=== PATIENT | male | born 1935 | race African-American/Black ===

== ENCOUNTER 2016-11-22 18:01 | Inpatient (IN) | payer OTHER ==
[~2016-11-22] VITALS: Ht 175.3 cm; Wt 61.2 kg
--- NOTE | ~2016-11-22 | O ---
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 OPERATIVE PROCEDURE: Excisional debridement of 10 x 12 cm necrotic subcutaneous skin and fascia with a mass comprising 4 x 8 x 2 cm of necrotic tissue, stage 4 decubitus ulcer. SURGEON: Derek Diaz M.D. INDICATIONS: This 81-year-old male who is confined to bed with severe parkinsonian has been developing over recent months a left ischial tuberosity stage 4 decubitus ulcer of approximately 4 cm diameter, but with marked necrosis of the underlying subcutaneous tissue and muscle fascia, now requires excisional debridement. OPERATIVE PROCEDURE: The durable power of copy room technician is the patient's . Had discussion of the planned procedure and she gave informed consent to proceed. He was brought to the operating room suite and had satisfactory induction of general anesthesia. He was placed into a right lateral decubitus position. The paint with Betadine around the left ischial tuberosity and decubitus ulcer was performed; appropriate draping was then placed. Initially the round 4 cm opening was opened in an inferior aspect to fully open the tissue. A small amount of necrotic skin was excised, a large amount of underlying subcutaneous necrotic tissue and muscle and fascia was then excised down to clean bleeding points. This mass for excisional debridement of necrotic tissue was approximately 4 x 8 x 2 cm in greatest dimensions. The opening of the tissue after the skin and subcutaneous tissue were opened was now approximately 8 x [address] [address] OPERATIVE REPORT Name: INES SANCHEZ Room #: 203-P [facility] IN .R.#: [id number] Admission: 11/22/16 Attend Phys: Nico Singh MD Discharge: Date of : 35 Report #: [id number] cm in greatest dimensions. All necrotic tissue was excised. Hemostasis was then achieved with electrocautery Surgicel sheets were placed adjacent to the underlying tissue. The remainder of the wound was then packed tightly with iodoform Naropin soaked gauze. After the wound was packed tightly an ABD was placed and the estimated blood loss for the entire procedure was less than 25 mL. The patient tolerated the procedure well and he returned to the recovery room in stable and satisfactory condition. <ELECTRONICALLY SIGNED> By: Derek Diaz MD, FACS 12/04/16 0858 1639 1935 Derek Diaz MD, FACS /nt
--- NOTE | ~2016-11-22 | HC ---
[facility] [place] [address] [address] [place] [address] CONSULTATION Name: INES SANCHEZ Room #: 203-P [facility] IN M.R.#: [id number] Admission: 11/22/16 Attend Phys: Nico Singh MD Discharge: Date of : 35 Report #: [id number] THIS REPORT FOR: //name// CC: Nico Mccray DATE OF SERVICE: 11/24/2016 INDICATION: Preoperative evaluation. HISTORY OF PRESENT ILLNESS: This is an 81-year-old gentleman who was transferred from [facility] for fevers. He has had multiple admissions for ulcers and presents for concern regarding exacerbation of his decubitus ulcers. The patient has a history of severe dementia and Parkinson's, nonreversible. Part of the history is obtained from his medical records and his . There is no prior history of CAD, NV, diabetes mellitus or hypertension. PAST MEDICAL HISTORY: Parkinson's, Alzheimer's, nonreversible; history of dysphagia, status post PEG; left BKA. ALLERGIES: None. MEDICATIONS: Please see the MAR for full listing. SOCIAL HISTORY: Negative for tobacco use. FAMILY HISTORY: Unobtainable. REVIEW OF SYSTEMS: Unobtainable. PHYSICAL EXAMINATION: VITAL SIGNS: Blood pressure is 110/70, heart rate is 80 beats per minute. GENERAL APPEARANCE: In no distress. HEAD AND EYES: Atraumatic. PERRLA. NECK: No JVD. LUNGS: Clear to auscultation bilaterally. CARDIAC: S1, S2 positive, no gallops, no rubs. ABDOMEN: Soft, nontender. EXTREMITIES: Prior left AKA. ECG reveals sinus rhythm. LABORATORY VALUES: Sodium is 138, creatinine 0.6. White count is 11.4, hemoglobin is 10.3. ASSESSMENT: In summary, this is an 81-year-old gentleman who has severe [facility] [address] [place] [address] CONSULTATION Name: INES SANCHEZ Room #: 203-P ADM IN [facility]#: [id number] Admission: 11/22/16 Attend Phys: Nico Singh MD Discharge: Date of : 35 Report #: [id number] Alzheimer's and Parkinson's presenting with progression of decubitus ulcers requiring wound debridement by General Surgery. He has no prior history of CAD, diabetes mellitus or hypertension. We are unable to assess his functional capacity. The ECG reveals sinus rhythm with no acute ST segment changes. It is difficult to risk stratify the patient. However, the procedure itself is a low to moderate risk procedure. There appears to be no apparent restrictions prohibiting him from proceeding with debridement given its current state. Thank you for allowing me to participate in the care of your patient. <ELECTRONICALLY SIGNED> By: Og Young MD 11/25/16 0804 1121 2233 Og Young MD /nt
--- NOTE | ~2016-11-22 | S ---
[facility] [place] [address] [address] [place] [address] SURGICAL PATH RPT PROCEDURE Name: HUMZA SANCHEZ Room #: 203-P ADM IN M.R.#: [id number] Admission: 11/22/16 Date of : 35 Discharge: Report #: [id number] Path Case #: [id number] PATHOLOGY REPORT COLLECTION DATE: 11/24/2016 RECEIVED DATE: 11/26/2016 SUBMITTING PHYS: Dr. Derek Diaz OTHER PHYS: Dr. Ramón Singh SPECIMEN(S) RECEIVED: A.Necrotic bedridement tissue left ischial tuberosity * * * * * * * * * * * * FINAL DIAGNOSIS: Necrotic debridement tissue left ischial tuberosity: - Marked acute inflammation associated with fibrinoid necrosis, consistent with debridement tissue. PATHOLOGIST: Esthela Garcia M.D. REPORT ELECTRONICALLY SIGNED BY: Esthela Garcia M.D. DATE/TIME: 11/27/2016 16:56 * * * * * * * * * * * * GROSS PATHOLOGY: The specimen is received in formalin labeled "Humza Sanchez, necrotic debridement tissue left ischial tuberosity". Received is a moderate amount of dusky ocampo-ortega necrotic-appearing soft tissue measuring 7.2 x 3.5 x 1.5 cm in aggregate dimensions. The specimen is submitted representatively in cassette A1. (CAA; 11/26/2016) CLINICAL HISTORY: Decubitus ulcer stage IV INITIAL CPT CODE(S): A; 47371 Professional services performed by [facility] at [facility] [address] [place] [address] Technical services performed by [facility] at [address] [place] [address]. [facility] [address] [place] [address] SURGICAL PATH RPT PROCEDURE Name: HUMZA SANCHEZ Room #: 203-P ADM IN M.R.#: [id number] Admission: 11/22/16 Date of : 35 Discharge: Report #: [id number] Path Case #: [id number] [address] PHONE: [phone] DIRECTOR: Juan Manuel Iniguez M.D. * * * END OF REPORT * * *
--- NOTE | ~2016-11-22 | HC ---
[facility] [place] [address] [place] [address] CONSULTATION Name: INES SANCHEZ Room #: 203-P ADM IN M.R.#: [id number] Admission: 11/22/16 Attend Phys: Nico Singh MD Discharge: Date of : 35 Report #: [id number] THIS REPORT FOR: //name// CC: Nico Mccray REASON FOR CONSULTATION: I was asked to evaluate concerning left ischial tuberosity osteomyelitis. HISTORY OF PRESENT ILLNESS: The patient is an 81-year-old with underlying history of Parkinson's disease and Lewy body dementia who has had a chronic ulcer to his left ischium. He had a heel wound that would not resolve and underwent an AKA. He continues to have issues; however, with a left ischial wound. I do not have any recent cultures. Prior to his admission, he had some fever up to 101 degrees. The patient does feed orally plus he has had a PEG tube placed. He was nonverbal. He has been in a residential for the last year or so. On 11/24/2016, he was taken to the operating room for surgical debridement. This was performed by Dr. Derek Diaz. There are no early postoperative complications. He has been placed on vancomycin and Levaquin. Previous cultures earlier in the year had grown MRSA from his heel wound in addition to morganella and enterococcus. Postoperatively, he has been afebrile, appetite has improved some, no diarrhea, has an indwelling Van catheter, and has peripheral IV in place. He is on room air with an oxygen saturation 100%. REVIEW OF SYSTEMS: Otherwise, noncontributory. ALLERGIES: None known. MEDICATIONS: As noted on his MAR including vancomycin and Levaquin. PAST MEDICAL HISTORY, FAMILY HISTORY, AND SOCIAL HISTORY: Unchanged from his previous consultation and that of his history and physical. PHYSICAL EXAMINATION: VITAL SIGNS: He is afebrile, hemodynamically stable. GENERAL: He was sitting up in bed, being fed by his daughter pureed food. HEENT: Unremarkable. NECK: Supple. There was increased muscle tone throughout. LUNGS: Clear. HEART: Regular without murmur. ABDOMEN: Soft, PEG site unremarkable. EXTREMITIES: His left ischial wound was relatively clean, it was down to the bone. No surrounding cellulitis. No purulent drainage. He is incontinent of stool. His left AKA was unremarkable. Right foot had a lateral malleolus shallow ulcer. LABORATORY STUDIES: Sodium 139, potassium 3.7, bicarbonate 24, creatinine 0.5. [address] [address] CONSULTATION Name: INES SNACHEZ Room #: [facility]- ADM IN ..#: [id number] Admission: 11/22/16 Attend Phys: Nico Singh MD Discharge: Date of : 35 Report #: [id number] Hemoglobin 9, white count 5, platelet count 392,000. His white count is down from his admission white count of 18,000. Vancomycin trough of 13. MRSA screen was negative, although he had a positive culture from his foot 5 months ago. Urinalysis, few wbc's, many bacteria from a Van catheter specimen. Blood cultures are negative to date. MRI scan of the pelvis showed a large left posterior decubitus ulcer within the left inferior buttock. No evidence of osteomyelitis seen on that study. IMPRESSION: An 81-year-old with chronic ulcer to his left ischium, now postoperative day #2. Do not have any microbiology reports . Although, the MRI scan showed no evidence of bony destruction. The wound does track down toward the ischial tuberosity. I would recommend broad antibiotic coverage for the next week or so until we get a good base of healing tissue above the ischium. I will vancomycin with Gram negative coverage. We will follow his white count as well as sedimentation rate. PLAN: To transfer to LTAC for further antibiotic and wound care. <ELECTRONICALLY SIGNED> By: Neel Galaviz MD 11/27/16 0747 1751 0113 Neel Galaviz MD /nt
--- NOTE | ~2016-11-22 | HC ---
[facility] [address] [address] [place] [address] CONSULTATION Name: INES SANCHEZ Room #: 540-P [facility] IN M.R.#: [id number] Admission: 11/22/16 Attend Phys: Nico Singh MD Discharge: 12/05/16 Date of : 35 Report #: [id number] THIS REPORT FOR: //name// CC: Ncio Singh [facility] DATE OF SERVICE: 11/22/2016 Dr. Montalvo, physician bus assistant in collaboration with Dr. Asad Washington dictating a consultation note on the patient. ADMITTING PHYSICIAN: Nico Singh M.D. REASON FOR CONSULTATION: Evaluation and recommendations regarding wound care. CHIEF COMPLAINT: Fever, chronic left ischial pressure ulcer. HISTORY OF PRESENT ILLNESS: The patient is an 81-year-old -Turkish male, well known to wound care from previous hospitalizations that was brought in to the Emergency Department by EMS from [facility]. The patient's last admission was on 08/14/2016. He has recently undergone a left BKA. He does also have a PEG tube in place for dysphagia. The patient has a history of Lewy Body dementia and is nonverbal. On that previous admission, he did have a left ischial tuberosity wound, staged at a 2. Currently, the wound is significantly deteriorated with very malodorous, copious, brown purulent drainage expressed . The bone can be felt with a thin layer of tissue over it. A CT scan of the abdomen upon this admission did not show overt osteomyelitis; however, MRI is warranted. He does have increased heterogenousy and slight enlargement of the proximal hamstring with possible infectious myositis. He also has left inguinal adenopathy with fluid to the right inguinal canal. HPI is limited secondary to the patient being noncommunicative. PAST MEDICAL HISTORY: Significant for Lewy Body dementia and Parkinson's disease and failure to thrive. PAST SURGICAL HISTORY: Significant for left above the knee amputation, PEG tube placement in 2016, hernia repair. SOCIAL HISTORY: Former smoker of cigarettes, past use of alcohol, negative for illicit drug use. The patient is a full code. FAMILY HISTORY: Not pertinent to current wound diagnoses. ALLERGIES: No known drug allergies. CURRENT MEDICATIONS: Levothyroxine, multivitamin, vitamin D, vitamin C, [address] [address] CONSULTATION Name: INES SANCHEZ Room #: 540-P [facility] IN [facility].#: [id number] Admission: 11/22/16 Attend Phys: Nioc Singh MD Discharge: 12/05/16 Date of : 35 Report #: [id number] vancomycin, levothyroxine, carbidopa-levodopa, fentanyl, Tylenol. REVIEW OF SYSTEMS: Unobtainable secondary to patient's overall condition. PHYSICAL EXAMINATION: GENERAL: The patient is alert. He will follow you with his eyes, again noncommunicative. VITAL SIGNS: Temperature 36.7 with a T-max of 38.4 on admission, pulse 84, respirations 16, blood pressure 115/58, pulse ox 100 on room air. HEENT: Head atraumatic, normocephalic. Mucous membranes dry, edentulous. NECK: Supple. Negative for JVD. LUNGS: Diminished. Chest x-ray at nursing facility was probable for pneumonia. Negative for cough during my exam. ABDOMEN: PEG tube in place, which is clean, dry and intact. GENITOURINARY: The patient has a chronic indwelling Van catheter. NEUROLOGIC: Not tested. SKIN: Exam of his left ischium, again, there is very malodorous copious amount of brown purulent drainage from his left ischium. There is necrotic stringing tissue present to the wound base. Bone is palpable with a thin layer of tissue present. The suraj-wound is clean, dry and intact. Sacrum: There is a small stage 2 pressure ulcer to the left side of his sacrum. Exam of the right lower extremity: He has an unstageable pressure ulcer to his right lateral ankle and right first metatarsal, those are intact. Eschar negative for drainage or signs or symptoms of infection or cellulitis. LABORATORY DATA: White blood cell 13.5, on admission was 18.6; hemoglobin 9.6, segmental neutrophils are 80. His lactic acid was 0.6, albumin 2.8. His UA was positive for protein, blood, and leukocyte esterase. Blood cultures pending. IMAGING: The patient underwent a CT abdomen and pelvis, which did show probable myositis of the proximal hamstring. No overt osteomyelitis seen. MRI was warranted given clinical picture with left inguinal adenopathy. ASSESSMENT: 1. Left ischial tuberosity, probable stage 4 pressure ulcer with concern of the infectious myositis. 2. Systemic inflammatory response syndrome secondary to left ischial tuberosity, probable stage 4 pressure ulcer with concern of the infectious myositis. 3. Urinary tract infection. 4. Severe dementia, nonverbal. 5. Dysphagia. 6. Parkinson's disease. 7. Hypothyroidism. PLAN: [facility] [address] [place] [address] CONSULTATION Name: INES SANCHEZ Room #: 540-P [facility] IN M.R.#: [id number] Admission: 11/22/16 Attend Phys: Nico Singh MD Discharge: 12/05/16 Date of : 35 Report #: [id number] 1. Local wound care will consist of quarter strength Dakin's, lightly packed into wound bed, cover with ABD and tape to the left ischium, ordered barrier cream to sacral wound, Betadine to the right lateral ankle and first metatarsal head daily. 2. We did order MRI of the left hip to assess for osteomyelitis. 3. Consult General Surgery, Dr. Diaz. I did discuss the case with Dr. Diaz with tentative surgical debridement planned for tomorrow. 4. Continue IV antibiotics of vancomycin and Levaquin with deep wound cultures to be taken at time of surgery. 5. The patient may eat and will be n.p.o. after midnight. He does have a pureed diet with PEG tube for supplemental feedings. 6. Continue to follow in wound care rounds. Thank you for the opportunity to participate in the care of this patient. <ELECTRONICALLY SIGNED> By: DREA Davison 12/12/16 2305 1630 [id number] DREA Davison /nt
--- NOTE | ~2016-11-22 | EKG ---
[address] [address] ELECTROCARDIOGRAM REPORT Name: SANCHEZ,INES RADHA Room #: 203-P ADM IN M.R.#: [id number] Admission: 11/22/16 Attend Phys: Nico Singh MD Discharge: Date of : 35 Report #: [id number] THIS REPORT FOR: //name// [facility] ED Test Date: 2016-11-22 Test Time: 18:19:01 Pat Name: INES SANCHEZ Department: Room: 203 Gender: M Lead Pharmacy Technician: mylene : 1935 Requested By: Marily Michele Order Number: [id number] MD: Cristóbal Rosenthal Measurements Intervals [place] Rate: 96 P: 64 WV: 152 QRS: -37 QRSD: 76 T: 35 QT: 338 QTc: 428 Interpretive Statements Sinus rhythm Probable left ventricular hypertrophy Baseline wander in lead(s) V2 Compared to ECG 08/14/2016 16:36:33 Atrial premature complex(es) no longer present Electronically Signed On 11-26-2016 8:20:21 CDT by Cristóbal Rosenthal [email or web address] <ELECTRONICALLY SIGNED> By: Cristóbal Rosenthal MD 11/26/16 0820 18 18 Cristóbal Rosentahl MD /EPI
--- NOTE | ~2016-11-22 | HC ---
[facility] [place] [address] CONSULTATION Name: INES SANCHEZ Room #: 540-P [facility] IN M.R.#: [id number] Admission: 11/22/16 Attend Phys: Nico Singh MD Discharge: Date of : 35 Report #: [id number] THIS REPORT FOR: //name// CC: Nico Mccray DATE OF SERVICE: 11/23/2016 HISTORY OF PRESENT ILLNESS: I have been asked to evaluate this 81-year-old male who was brought to the emergency department at [facility] from [facility] for concerns regarding chronic progressively enlarging wound of his left ischial area that is worsening. The patient also has had a fever for the past 4 days. He is total patient care and has no verbalization. The nursing facility reported chest x-rays demonstrated possible pneumonia. The patient comes from a dementia Alzheimer's unit. PAST MEDICAL HISTORY: Consistent with failure to thrive, left AK amputation, hernia repair, PEG tube placed in 2016, Lewy Body Dementia, parkinsonianism. MEDICATIONS: Bactrim, acetaminophen, Ativan, vitamin D3, polymyxin, Sinemet 25/100 mg tablets, Synthroid daily, vitamin D complex, multivitamins, heparin 5000 units subq q. 12, ascorbic acid. ALLERGIES: No known drug allergies. SOCIAL HISTORY: He is , discussed some medical history with the by phone. Tobacco use, former smoker, having quit over a year ago. Does not use alcohol currently. REVIEW OF SYSTEMS: A 10-point review of systems not obtainable. reports nothing significantly changed except for the ischial tuberosity ulcer, which is progressing in the left ischial tuberosity area. PHYSICAL EXAMINATION: GENERAL: The patient is rigid, nonverbal. LUNGS: Clear at the bases. CARDIOVASCULAR: Regular sinus rhythm. ABDOMEN: Soft. PEG tube functional in place. EXTREMITIES: There is a 3 to 4 cm diameter ischial tuberosity wound opening with foul smelling necrotic soft tissue present with some drainage. Left AK amputation. DIAGNOSTIC IMPRESSION: Stage IV left ischial tuberosity sacral decubitus pressure ulcer. This will require debridement in the operating room near future. Plans have been discussed with the patient's who is durable power of plug overwrap machine tender and she is in agreement to proceed with surgical excision in the [address] [address] CONSULTATION Name: INES SANCHEZ RADHA Room #: 540-P [facility] IN .R.#: [id number] Admission: 11/22/16 Attend Phys: Nico Singh MD Discharge: Date of : 35 Report #: [id number] a.m. Thank you for allowing us to participate in his care. <ELECTRONICALLY SIGNED> By: Derek Diaz MD, FACS 12/05/16 1118 1656 0359 Derek Diaz MD, FACS /nt
[~2016-11-22 18:01] MED LIST: ACETAMINOPHEN325 M1 PO; ASPIR-TRIN325 MG PO; ATIVAN0.5 MG PO; AUGMENTIN 875875 MG PO; BETADINE240 ML TOP; BISACODYL SUPP10 MG RECTAL; CELEXA20 MG PO; CENTRUM SILVER1 EAC2 PO; CIPRO250 M1 PER TUBE; DUONEB 2.5-0.5 M3 ML; DUONEB 2.5-0.5 M3 ML INH; ESCITALOPRAM OX20 MG PO; HYDROCODON-ACE1 EAC7 PO; KEFLEX250 MG PO; KEFLEX250 MG/5 M PO; LEVOTHYROXIN0.025 MG PO; MUCINEX TA600 MG/TA2 PO; NAMZARIC 28 MG1 EACH PO; PEPCID20 MG PO; POLYMYXIN B/TMP10 ML OPHTHALMIC; PROBIOTIC1 EAC1 PO; SINEMET 25-1001 EAC1 PO; TOBRAMYCIN SULFA5 M1 OP; TYLENOL325 MG PER TUBE; TYLENOL325 MG PO; VITAMIN D 5050000 I1 PO; VITAMIN D2000 UNIT PO; ZYPREXA5 MG PO
[2016-11-22 18:03] VITALS: BP 123/71
[2016-11-22 18:56] LABS: HEMATOCRIT 32.1 % (42.0-52.0); HEMOGLOBIN 10.9 gm/dL (14.0-18.0); MCH 30.6 pg (26.0-34.0); MCHC 33.9 g/dL (28.0-37.0); MCV 90.3 fL (80.0-100.0); PLATELET COUNT 364 thou/uL (150-400); RBC 3.55 mil/uL (4.50-6.00); RDW 13.4 % (10.5-14.5); WBC 18.6 thou/uL (4.0-11.0)
[2016-11-22 18:57] LABS: MANUAL DIFF YES
[2016-11-22 19:06] LABS: ANION GAP 6 mmol/L (7-16); BUN 16 mg/dL (7-18); CALCIUM 9.5 mg/dL (8.5-10.1); CHLORIDE 101 mmol/L (98-107); CO2 26 mmol/L (21-32); CREATININE 0.7 mg/dL (0.7-1.3); GLUCOSE 132 mg/dL (74-106); POTASSIUM 4.3 mmol/L (3.5-5.1); SODIUM 133 mmol/L (136-145)
[2016-11-22 19:13] LABS: ALBUMIN 2.8 g/dL (3.4-5.0); ALKALINE PHOSPHATASE 117 U/L (46-116); SGOT 36 U/L (15-37); SGPT 51 U/L (30-65); TOTAL BILIRUBIN 0.7 mg/dL (<0.1-1.0); TOTAL PROTEIN 8.7 g/dL (6.4-8.2); TROPONIN-I < 0.04 ng/mL (<0.04-0.07)
[2016-11-22 19:25] LABS: ABSOLUTE NEUTROPHILS 16.4 thou/uL (1.4-8.2); TOTAL CELL COUNT 100
[2016-11-22 20:22] LABS: URINE BILIRUBIN NEGATIVE (Negative); URINE BLOOD 3+ (Negative); URINE COLOR YELLOW; URINE GLUCOSE-RANDOM* NEGATIVE (Negative); URINE KETONES NEGATIVE (Negative); URINE NITRITE POSITIVE (Negative); URINE PROTEIN (DIPSTICK) 2+ (Negative)
[2016-11-22 20:30] LABS: BACTERIA >30 Many /HPF (None Seen); CASTS None Seen /LPF (None Seen); CRYSTALS None Seen /LPF (None Seen); SQUAMOUS None Seen /LPF (0-3); URINE WBC 6-15 Few /HPF (0-5)
[2016-11-22] MEDS ORDERED: BACTRIM DS TAB1 EAC1 PER TUBE (20:39)
[2016-11-22] MEDS ORDERED: BENEPROTEIN1 EACH PER TUBE (20:39)
[2016-11-22] MEDS ORDERED: UNICOMPLEX M TA1 TA1 PER TUBE (20:40)
[2016-11-22] MEDS ORDERED: HEPARIN SO5000 UNIT2 SUBQ (20:41)
[2016-11-22] MEDS ORDERED: VITAMINC500 PER TUBE (20:42)
[2016-11-22 21:16] VITALS: BP 113/58
[2016-11-22 22:38] VITALS: BP 121/76
[2016-11-23] MEDS ORDERED: ACETAMINOP650 MG/20. PER TUBE (00:19)
[2016-11-23] MEDS ORDERED: BENEPROTEIN1 EACH PER TUBE (00:21)
[2016-11-23 03:56] VITALS: BP 110/62
[2016-11-23 05:53] LABS: HEMATOCRIT 28.1 % (42.0-52.0); HEMOGLOBIN 9.6 gm/dL (14.0-18.0); MCH 31.1 pg (26.0-34.0); MCHC 34.3 g/dL (28.0-37.0); MCV 90.9 fL (80.0-100.0); PLATELET COUNT 335 thou/uL (150-400); RDW 13.6 % (10.5-14.5); WBC 13.5 thou/uL (4.0-11.0)
[2016-11-23 05:55] LABS: MANUAL DIFF YES
[2016-11-23 06:02] LABS: CREATININE 0.7 mg/dL (0.7-1.3); POTASSIUM 3.8 mmol/L (3.5-5.1)
[2016-11-23 08:07] VITALS: BP 109/48
[2016-11-23 08:48] LABS: ABSOLUTE NEUTROPHILS 10.8 thou/uL (1.4-8.2); TOTAL CELL COUNT 100
[2016-11-23 08:49] LABS: ANISOCYTOSIS SLIGHT
[2016-11-23 11:26] VITALS: BP 130/70
[2016-11-23 16:09] VITALS: BP 115/58
[2016-11-23 19:42] VITALS: BP 129/73
[2016-11-24 03:32] VITALS: BP 119/63
[2016-11-24 08:20] VITALS: BP 117/63
[2016-11-24 08:21] LABS: HEMATOCRIT 29.8 % (42.0-52.0); HEMOGLOBIN 10.3 gm/dL (14.0-18.0); MCH 31.2 pg (26.0-34.0); MCHC 34.4 g/dL (28.0-37.0); MCV 90.6 fL (80.0-100.0); RBC 3.29 mil/uL (4.50-6.00); RDW 13.5 % (10.5-14.5); WBC 11.4 thou/uL (4.0-11.0)
[2016-11-24 08:29] LABS: CREATININE 0.6 mg/dL (0.7-1.3); POTASSIUM 3.7 mmol/L (3.5-5.1)
[2016-11-24 13:15] VITALS: BP 115/67
[2016-11-24 18:00] VITALS: BP 115/69
[2016-11-24 19:27] VITALS: BP 111/53
[2016-11-25 00:46] VITALS: BP 141/74
[2016-11-25 03:33] VITALS: BP 127/69
[2016-11-25 07:39] VITALS: BP 122/56
[2016-11-25 12:18] VITALS: BP 137/66
[2016-11-25 15:50] VITALS: BP 143/64
[2016-11-25 19:42] VITALS: BP 156/81
[2016-11-26 03:12] VITALS: BP 135/67
[2016-11-26 05:14] LABS: HEMATOCRIT 26.2 % (42.0-52.0); MCH 31.2 pg (26.0-34.0); MCHC 34.3 g/dL (28.0-37.0); MCV 90.9 fL (80.0-100.0); RBC 2.89 mil/uL (4.50-6.00); RDW 13.3 % (10.5-14.5); WBC 5.5 thou/uL (4.0-11.0)
[2016-11-26 05:24] LABS: CALCIUM 8.3 mg/dL (8.5-10.1); CREATININE 0.5 mg/dL (0.7-1.3); POTASSIUM 3.7 mmol/L (3.5-5.1)
[2016-11-26 07:50] VITALS: BP 129/65
[2016-11-26 12:00] VITALS: BP 123/67
[2016-11-26 16:10] VITALS: BP 148/88
[2016-11-26 19:16] VITALS: BP 175/84
[2016-11-27 03:39] VITALS: BP 138/65
[2016-11-27 07:15] VITALS: BP 159/83
[2016-11-27 08:26] LABS: HEMATOCRIT 27.9 % (42.0-52.0); HEMOGLOBIN 9.4 gm/dL (14.0-18.0); MCH 30.8 pg (26.0-34.0); MCHC 33.6 g/dL (28.0-37.0); MCV 91.7 fL (80.0-100.0); RBC 3.04 mil/uL (4.50-6.00); RDW 13.5 % (10.5-14.5); WBC 6.3 thou/uL (4.0-11.0)
[2016-11-27 08:38] LABS: CALCIUM 8.5 mg/dL (8.5-10.1); CREATININE 0.6 mg/dL (0.7-1.3); POTASSIUM 3.5 mmol/L (3.5-5.1)
[2016-11-27 12:10] VITALS: BP 126/71
[2016-11-27 16:25] VITALS: BP 129/68
[2016-11-27 19:30] VITALS: BP 126/71
[2016-11-28 04:13] VITALS: BP 141/76
[2016-11-28 08:00] VITALS: BP 121/63
[2016-11-28 12:05] VITALS: BP 123/73
[2016-11-28 17:23] VITALS: BP 152/72
[2016-11-28 20:18] VITALS: BP 129/72
[2016-11-29 03:40] VITALS: BP 131/59
[2016-11-29 07:30] VITALS: BP 129/78
[2016-11-29 11:45] VITALS: BP 141/83
[2016-11-29 15:48] VITALS: BP 138/71
[2016-11-29 19:40] VITALS: BP 137/62
[2016-11-29 23:45] VITALS: BP 108/59
[2016-11-30 04:18] VITALS: BP 113/68
[2016-11-30 07:56] VITALS: BP 133/67
[2016-11-30 11:57] VITALS: BP 124/71
[2016-11-30 16:14] VITALS: BP 123/68
[2016-11-30 20:04] VITALS: BP 123/59
[2016-12-01 05:00] VITALS: BP 131/65
[2016-12-01 08:03] VITALS: BP 106/60
[2016-12-01 12:12] VITALS: BP 110/62
[2016-12-01 16:27] VITALS: BP 124/67
[2016-12-01 19:44] VITALS: BP 128/75
[2016-12-02 04:00] VITALS: BP 126/72
[2016-12-02 07:47] VITALS: BP 143/75
[2016-12-02 11:17] VITALS: BP 140/84
[2016-12-02 16:36] VITALS: BP 137/75
[2016-12-02 20:36] VITALS: BP 143/81
[2016-12-02 23:54] VITALS: BP 124/75
[2016-12-03 03:25] VITALS: BP 118/57
[2016-12-03 08:07] VITALS: BP 108/49
[2016-12-03 11:22] VITALS: BP 123/69
[2016-12-03 15:49] VITALS: BP 127/48
[2016-12-03 20:17] VITALS: BP 138/56
[2016-12-04 03:34] VITALS: BP 111/54
[2016-12-04 05:24] LABS: ABSOLUTE NEUTROPHILS 5.2 thou/uL (1.4-8.2); EOSINOPHILS 4.4 % (0.0-3.0); HEMATOCRIT 28.7 % (42.0-52.0); HEMOGLOBIN 9.6 gm/dL (14.0-18.0); LYMPHOCYTES 15.4 % (24.0-44.0); MANUAL DIFF NO; MCH 30.9 pg (26.0-34.0); MCHC 33.3 g/dL (28.0-37.0); MCV 92.7 fL (80.0-100.0); MONOCYTES 9.7 % (1.0-8.0); PLATELET COUNT 281 thou/uL (150-400); POLYS 69.5 % (36.0-66.0); WBC 7.5 thou/uL (4.0-11.0)
[2016-12-04 05:47] LABS: ALBUMIN 2.4 g/dL (3.4-5.0); CALCIUM 8.7 mg/dL (8.5-10.1); CREATININE 0.6 mg/dL (0.7-1.3); TOTAL BILIRUBIN 0.3 mg/dL (<0.1-1.0); TOTAL PROTEIN 6.9 g/dL (6.4-8.2)
[2016-12-04 08:47] VITALS: BP 114/62
[2016-12-04 11:10] VITALS: BP 129/74
[2016-12-04 15:41] VITALS: BP 109/61
[2016-12-04 20:00] VITALS: BP 151/91
[2016-12-05 04:00] VITALS: BP 116/55
[2016-12-05 09:12] VITALS: BP 138/64
[2016-12-05] MEDS ORDERED: ZOSYN 3.3753.375 GM IV (09:58)
[2016-12-05] MEDS ORDERED: ACETAMINOPHEN325 M1 PO (09:59)
== END 2016-12-05 14:14 | DRG 853 ==
LOC: ER 18:01 → EROBS 20:32 → 2N 20:32 → 5S 12-04 10:57
PROVIDERS: Hospitalist; Nurse Practitioner Acute Care; Nurse Practitioner Family; Specialist; Surgery
PROC: 0JBC0ZZ Excision of Pelvic Region Subcutaneous Tissue and Fascia, Open Approach (ICD-10-PCS; principal; 2016-11-24)
PROC: 02HV33Z Insertion of Infusion Device into Superior Vena Cava, Percutaneous Approach (ICD-10-PCS; 2016-11-26)
DX: A41.9 Sepsis, unspecified organism (principal); L89.894 Pressure ulcer of other site, stage 4; E43 Unspecified severe protein-calorie malnutrition; N39.0 Urinary tract infection, site not specified; G30.9 Alzheimer's disease, unspecified; F02.80 Dementia in other diseases classified elsewhere, unspecified severity, without behavioral disturbance, psychotic disturbance, mood disturbance, and anxiety; G20 Parkinson's disease; R13.10 Dysphagia, unspecified; E03.9 Hypothyroidism, unspecified; L89.159 Pressure ulcer of sacral region, unspecified stage; L89.152 Pressure ulcer of sacral region, stage 2; S99.921A Unspecified injury of right foot, initial encounter; X58.XXXA Exposure to other specified factors, initial encounter; L89.610 Pressure ulcer of right heel, unstageable; Z89.512 Acquired absence of left leg below knee; Z79.899 Other long term (current) drug therapy; Y99.8 Other external cause status; Y93.89 Activity, other specified; Y92.89 Other specified places as the place of occurrence of the external cause; Z89.612 Acquired absence of left leg above knee; Z93.1 Gastrostomy status; Z87.891 Personal history of nicotine dependence
CPT/HCPCS: 10081; 10089; 27000; 50010; 50101; 50386; 50403; 53078; 62110; 62900; 70005

== ENCOUNTER 2017-01-10 07:06 | Inpatient (IN) | payer OTHER ==
[~2017-01-10] VITALS: Ht 175.3 cm; Wt 54.5 kg
[2017-01-10] VITALS (60 sets, daily range): BP systolic 48–163; BP diastolic 28–93
[~2017-01-10 07:06] MED LIST changes: +ACETAMINOP650 MG/20. PER TUBE; +BACTRIM DS TAB1 EAC1 PER TUBE; +BENEPROTEIN1 EACH PER TUBE; +HEPARIN SO5000 UNIT2 SUBQ; +UNICOMPLEX M TA1 TA1 PER TUBE; +VITAMINC500 PER TUBE; +ZOSYN 3.3753.375 GM IV
[2017-01-10 07:37] LABS: ABSOLUTE NEUTROPHILS 7.6 thou/uL (1.4-8.2); BASOPHILS 0.4 % (0.0-2.0); EOSINOPHILS 0.2 % (0.0-3.0); HEMATOCRIT 43.9 % (42.0-52.0); HEMOGLOBIN 14.7 gm/dL (14.0-18.0); MCH 31.6 pg (26.0-34.0); MCHC 33.5 g/dL (28.0-37.0); MCV 94.5 fL (80.0-100.0); MONOCYTES 8.8 % (1.0-8.0); PLATELET COUNT 362 thou/uL (150-400); POLYS 76.6 % (36.0-66.0); RBC 4.64 mil/uL (4.50-6.00); RDW 14.8 % (10.5-14.5); WBC 9.9 thou/uL (4.0-11.0)
[2017-01-10 07:41] LABS: MANUAL DIFF NO
[2017-01-10 07:59] LABS: ABG SAMPLE TYPE ARTERIAL; BE(vivo) -10.4 mmol/L (-2 to +3); HCO3 16.6 mmol/L (22.0-26.0); LACTATE 7.89 mmol/L (0.5-2.0); O2(CT) 16.6 mL/dL (15.0-23.0); O2Hb 89.4 % (92.0-98.0); PCO2 40.6 mmHg (35.0-45.0); PO2 71.7 mmHg (80.0-100.0); STICK SITE R.RADIAL; pH 7.229 (7.360-7.450); sO2 91.5 % (92.0-98.0); tCO2 17.8 mmol/L (24.0-30.0)
[2017-01-10 07:59] LABS: CALCIUM 11.1 mg/dL (8.5-10.1); CREATININE 2.6 mg/dL (0.7-1.3); POTASSIUM 4.2 mmol/L (3.5-5.1)
[2017-01-10 08:28] LABS: ALBUMIN 3.2 g/dL (3.4-5.0); DIRECT BILIRUBIN 0.2 mg/dL (<0.1-0.3); TOTAL BILIRUBIN 0.8 mg/dL (<0.1-1.0); TOTAL PROTEIN 8.6 g/dL (6.4-8.2)
[2017-01-10 08:33] LABS: APTT 27.4 Seconds (24.5-32.8); INR 1.1; PROTIME 11.8 Seconds (9.3-11.4)
[2017-01-10 12:50] LABS: ABG SAMPLE TYPE ARTERIAL; BE(vivo) -7.8 mmol/L (-2 to +3); HCO3 17.6 mmol/L (22.0-26.0); O2(CT) 16.7 mL/dL (15.0-23.0); PCO2 35.5 mmHg (35.0-45.0); PO2 76.6 mmHg (80.0-100.0); sO2 94.4 % (92.0-98.0); tCO2 18.7 mmol/L (24.0-30.0)
[2017-01-10 12:53] LABS: LACTATE 4.76 mmol/L (0.5-2.0); STICK SITE R.RADIAL; pH 7.313 (7.360-7.450)
[2017-01-10 12:54] LABS: ABG SAMPLE TYPE VENOUS; BE(vivo) -8.2 mmol/L (-2 to +3); LACTATE 5.04 mmol/L (0.5-2.0); O2(CT) 10.9 mL/dL (15.0-23.0); O2Hb VENOUS 61.2 (65.0-85.0); PCO2 VENOUS 45.5 mmHg (41.0-51.0); PO2 VENOUS 35.7 mmHg (35.0-45.0); STICK SITE LINE; sO2 VENOUS 58.5 % (65.0-85.0); tCO2 20.4 mmol/L (24.0-30.0)
[2017-01-10 13:10] LABS: CALCIUM 9.3 mg/dL (8.5-10.1); CREATININE 2.8 mg/dL (0.7-1.3); POTASSIUM 4.4 mmol/L (3.5-5.1)
[2017-01-10 13:21] LABS: APTT 29.5 Seconds (24.5-32.8); FIBRINOGEN 390.2 mg/dL (210-360); INR 1.2; PROTIME 12.8 Seconds (9.3-11.4)
[2017-01-10 13:54] LABS: ABG SAMPLE TYPE VENOUS; BE(vivo) -7.7 mmol/L (-2 to +3); LACTATE 4.88 mmol/L (0.5-2.0); O2(CT) 10.7 mL/dL (15.0-23.0); O2Hb VENOUS 59.7 (65.0-85.0); PCO2 VENOUS 43.4 mmHg (41.0-51.0); PO2 VENOUS 35.3 mmHg (35.0-45.0); STICK SITE LINE; sO2 VENOUS 59.2 % (65.0-85.0); tCO2 20.4 mmol/L (24.0-30.0)
[2017-01-10 16:21] LABS: URINE BILIRUBIN NEGATIVE (Negative); URINE BLOOD TRACE (Negative); URINE COLOR YELLOW; URINE GLUCOSE-RANDOM* NEGATIVE (Negative); URINE KETONES NEGATIVE (Negative); URINE LEUKOCYTES-REFLEX 3+ (Negative); URINE PROTEIN (DIPSTICK) 3+ (Negative); URINE SPECIFIC GRAVITY <= 1.005 (1.003-1.035); URINE UROBILINOGEN 0.2 E.U./dl (0.2-1.0)
[2017-01-10 16:29] LABS: AMORPHOUS PHOSPHATES Many /LPF (None Seen)
[2017-01-10 16:30] LABS: CASTS None Seen /LPF (None Seen); SQUAMOUS None Seen /LPF (0-3)
[2017-01-10 16:31] LABS: URINE RBC None Seen /HPF (0-2); URINE WBC-REFLEX None Seen /HPF (0-5)
[2017-01-10 19:39] LABS: CREATININE 2.3 mg/dL (0.7-1.3); POTASSIUM 4.5 mmol/L (3.5-5.1)
[2017-01-10 19:42] LABS: APTT 31.3 Seconds (24.5-32.8); FIBRINOGEN 454.1 mg/dL (210-360); INR 1.3; PROTIME 13.4 Seconds (9.3-11.4)
[2017-01-10 20:59] LABS: CALCIUM 9.1 mg/dL (8.5-10.1); CREATININE 2.1 mg/dL (0.7-1.3); POTASSIUM 4.5 mmol/L (3.5-5.1)
[2017-01-10 21:08] LABS: APTT 33.2 Seconds (24.5-32.8); INR 1.3; PROTIME 13.7 Seconds (9.3-11.4)
[2017-01-10 21:13] LABS: FIBRINOGEN 460.4 mg/dL (210-360)
[2017-01-11] VITALS (93 sets, daily range): BP systolic 85–173; BP diastolic 41–143
[2017-01-11 04:34] LABS: ABG SAMPLE TYPE ARTERIAL; BE(vivo) -5.4 mmol/L (-2 to +3); HCO3 17.4 mmol/L (22.0-26.0); LACTATE 2.74 mmol/L (0.5-2.0); O2(CT) 17.7 mL/dL (15.0-23.0); O2Hb 94.4 % (92.0-98.0); PCO2 26.9 mmHg (35.0-45.0); PO2 74.4 mmHg (80.0-100.0); pH 7.429 (7.360-7.450); sO2 95.6 % (92.0-98.0); tCO2 18.2 mmol/L (24.0-30.0)
[2017-01-11 04:37] LABS: STICK SITE R.RADIAL
[2017-01-11 05:08] LABS: HEMATOCRIT 34.5 % (42.0-52.0); MCH 30.4 pg (26.0-34.0); MCHC 33.5 g/dL (28.0-37.0); MCV 90.8 fL (80.0-100.0); PLATELET COUNT 194 thou/uL (150-400); RDW 14.4 % (10.5-14.5); WBC 11.4 thou/uL (4.0-11.0)
[2017-01-11 05:14] LABS: ALBUMIN 2.3 g/dL (3.4-5.0); CALCIUM 8.9 mg/dL (8.5-10.1); CREATININE 1.5 mg/dL (0.7-1.3); MAGNESIUM 1.9 mg/dL (1.8-2.4); POTASSIUM 4.3 mmol/L (3.5-5.1); TOTAL BILIRUBIN 0.6 mg/dL (<0.1-1.0); TOTAL PROTEIN 6.7 g/dL (6.4-8.2)
[2017-01-11 05:15] LABS: HEMOGLOBIN 11.5 gm/dL (14.0-18.0); MANUAL DIFF YES
[2017-01-11 09:09] LABS: ABSOLUTE NEUTROPHILS 9.5 thou/uL (1.4-8.2); METAMYELOCYTES 6 %; NUCLEATED RBCS 1 /100WBC; TOTAL CELL COUNT 100
[2017-01-11 09:13] LABS: ANISOCYTOSIS SLIGHT
[2017-01-12] VITALS (50 sets, daily range): BP systolic 90–138; BP diastolic 55–110
[2017-01-12 05:28] LABS: HEMATOCRIT 30.2 % (42.0-52.0); HEMOGLOBIN 10.1 gm/dL (14.0-18.0); MCH 30.4 pg (26.0-34.0); MCHC 33.6 g/dL (28.0-37.0); MCV 90.6 fL (80.0-100.0); PLATELET COUNT 155 thou/uL (150-400); RBC 3.33 mil/uL (4.50-6.00); RDW 14.6 % (10.5-14.5)
[2017-01-12 05:29] LABS: MANUAL DIFF YES
[2017-01-12 05:48] LABS: CALCIUM 8.3 mg/dL (8.5-10.1); CREATININE 0.8 mg/dL (0.7-1.3); MAGNESIUM 1.8 mg/dL (1.8-2.4); POTASSIUM 3.1 mmol/L (3.5-5.1); TOTAL BILIRUBIN 0.6 mg/dL (<0.1-1.0); TOTAL PROTEIN 6.4 g/dL (6.4-8.2)
[2017-01-12 05:59] LABS: ANISOCYTOSIS SLIGHT; TOTAL CELL COUNT 100
[2017-01-12 10:15] LABS: ABG SAMPLE TYPE ARTERIAL; BE(vivo) -2.7 mmol/L (-2 to +3); HCO3 21.9 mmol/L (22.0-26.0); LACTATE 1.58 mmol/L (0.5-2.0); O2(CT) 15.4 mL/dL (15.0-23.0); O2Hb 95.9 % (92.0-98.0); PCO2 37.3 mmHg (35.0-45.0); PO2 93.8 mmHg (80.0-100.0); STICK SITE R.RADIAL; pH 7.386 (7.360-7.450); sO2 97.1 % (92.0-98.0)
[2017-01-12 12:47] LABS: MAGNESIUM 1.9 mg/dL (1.8-2.4); POTASSIUM 3.2 mmol/L (3.5-5.1)
[2017-01-13] VITALS (15 sets, daily range): BP systolic 105–166; BP diastolic 59–86
[2017-01-13 05:37] LABS: HEMATOCRIT 29.4 % (42.0-52.0); HEMOGLOBIN 9.9 gm/dL (14.0-18.0); MCH 30.3 pg (26.0-34.0); MCHC 33.6 g/dL (28.0-37.0); MCV 90.2 fL (80.0-100.0); PLATELET COUNT 139 thou/uL (150-400); RBC 3.26 mil/uL (4.50-6.00); RDW 14.6 % (10.5-14.5); WBC 12.8 thou/uL (4.0-11.0)
[2017-01-13 05:40] LABS: MANUAL DIFF YES
[2017-01-13 05:45] LABS: CREATININE 0.7 mg/dL (0.7-1.3); MAGNESIUM 1.4 mg/dL (1.8-2.4); POTASSIUM 3.2 mmol/L (3.5-5.1)
[2017-01-13 05:47] LABS: ABG SAMPLE TYPE ARTERIAL; BE(vivo) -2.2 mmol/L (-2 to +3); HCO3 22.1 mmol/L (22.0-26.0); LACTATE 1.31 mmol/L (0.5-2.0); O2(CT) 13.4 mL/dL (15.0-23.0); O2Hb 88.8 % (92.0-98.0); pH 7.405 (7.360-7.450); sO2 88.8 % (92.0-98.0); tCO2 23.2 mmol/L (24.0-30.0)
[2017-01-13 05:48] LABS: PO2 54.6 mmHg (80.0-100.0); STICK SITE R.RADIAL
[2017-01-13 06:11] LABS: ABSOLUTE NEUTROPHILS 11.5 thou/uL (1.4-8.2); PLATELET ESTIMATE NORMAL; TOTAL CELL COUNT 100
[2017-01-13 12:18] LABS: MAGNESIUM 1.9 mg/dL (1.8-2.4); POTASSIUM 3.5 mmol/L (3.5-5.1)
== END 2017-01-14 02:50 | DRG 871 ==
LOC: ER 07:06 → EROBS 08:18 → ICU 08:18 → 2N 01-13 12:55
PROVIDERS: Emergency Medicine; Internal Medicine; Internal Medicine Pulmonary Disease
PROC: 06HM33Z Insertion of Infusion Device into Right Femoral Vein, Percutaneous Approach (ICD-10-PCS; principal; 2017-01-10)
DX: A41.9 Sepsis, unspecified organism (principal); J69.0 Pneumonitis due to inhalation of food and vomit; R65.21 Severe sepsis with septic shock; G93.40 Encephalopathy, unspecified; L89.324 Pressure ulcer of left buttock, stage 4; J96.20 Acute and chronic respiratory failure, unspecified whether with hypoxia or hypercapnia; N17.9 Acute kidney failure, unspecified; N39.0 Urinary tract infection, site not specified; G20 Parkinson's disease; F02.80 Dementia in other diseases classified elsewhere, unspecified severity, without behavioral disturbance, psychotic disturbance, mood disturbance, and anxiety; Z66 Do not resuscitate; I99.9 Unspecified disorder of circulatory system; R53.81 Other malaise; E87.6 Hypokalemia; D64.9 Anemia, unspecified; B96.4 Proteus (mirabilis) (morganii) as the cause of diseases classified elsewhere; E83.42 Hypomagnesemia; D69.6 Thrombocytopenia, unspecified; Z79.899 Other long term (current) drug therapy; Z87.891 Personal history of nicotine dependence; Z93.1 Gastrostomy status; Z89.612 Acquired absence of left leg above knee
CPT/HCPCS: 10078; 10081